=== PATIENT | female | born 2000 | race Caucasian/White ===

== ENCOUNTER 2021-07-11 17:48 | Emergency (ER) | payer OTHER ==
[~2021-07-11 17:48] MED LIST: BACTRIM DS TAB1 EACH PO; HYDROCODON-ACE1 EAC4 PO; METRONIDAZOLE500 MG PO; VIBRAMYCIN100 MG PO; ZOVIRAX200 MG PO
[2021-07-11 20:17] LABS: CORONAVIRUS 2019 SARS-COV-2 NEGATIVE (NEGATIVE); INFLUENZA A NAA NEGATIVE (NEGATIVE)
[2021-07-11] MEDS ORDERED: ZOFRAN4 M1 PO (21:23)
== END 2021-07-11 21:25 | disposition home or self-care (01) ==
LOC: FER 17:48
PROVIDERS: Nurse Practitioner Family
DX: B34.9 Viral infection, unspecified (principal); Z20.822 Contact with and (suspected) exposure to COVID-19
CPT/HCPCS: 99284; U0002